=== PATIENT | male | born 1960 | race Caucasian/White ===

== ENCOUNTER 2016-07-01 08:58 | Day surgery (SDC) | payer OTHER ==
[~2016-07-01] VITALS: Ht 180.3 cm; Wt 80.0 kg
[~2016-07-01 08:58] MED LIST: Lactated Ringer's 1,000 ML IV ONE; PANT40TA2 PO; SUCR1TAB30 PO
[2016-07-01] MEDS ORDERED: Propofol 10,000 mCg/mL 20 mL Inj ONE (08:59)
[2016-07-01] MEDS ORDERED: fentaNYL-PF 50 mCg/mL 2 mL Inj ONE (08:59)
[2016-07-01 09:11] VITALS: BP 143/87; PULSE 91; RESP 16; O2SAT 100
[2016-07-01] MEDS ORDERED: MetoCLOpramide 5 mg/mL 2 mL Inj IVPUSH PRN (09:45)
[2016-07-01] MEDS ORDERED: Lactated Ringer's 1,000 ML IV SCH (09:45)
[2016-07-01] MEDS ORDERED: Ondansetron 2 mg/mL 2 mL Inj IVPUSH PRN (09:45)
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
[2016-07-01 09:59] VITALS: BP 121/65; PULSE 79; RESP 14; O2SAT 96
--- NOTE | 2016-07-01 10:00 | PCM.ANEP2 ---
Post Anesthesia Evaluation ASA/CMS Post Anesthesia VS in Patient's Normal Range?: Yes Resp Stable; Airway Patent?: Yes CV Function & Hydration Stable: Yes Mental Status Recovered?: Yes Pain control Satisfactory?: Yes N/V Control Satisfactory?: Yes Juanito Callahan MD Jul 01, 2016 10:00
--- NOTE | 2016-07-01 10:00 | PCM.ANEP1 ---
Post Anesthesia Phase 1 PACU Phase 1 Assessment Date of Service: Jul 01, 2016 (0940) Vital Signs 36.5, 16, 121/65, 96%, 76 Vital Signs Date Time Temp Pulse Resp B/P Pulse Ox O2 Delivery O2 Flow Rate FiO2 07/01/16 09:11 36.7 91 16 143/87 100 Room Air Anesthetic Administered: GA Level of Alertness: Awake, talking ARMSTRONG's with Equal Strength: Yes Pain: No Nausea or Vomiting: No Oxygen Delivery: Room Air Lungs: Clear to Auscultation Dermatome Level: Full Sensation Summary DOING WELL Juanito Callahan MD Jul 01, 2016 10:00
[2016-07-01 10:09] VITALS: BP 125/78; PULSE 86; RESP 14; O2SAT 98
--- NOTE | 2016-07-01 11:17 | ENDO ---
[address] [address] ENDOSCOPY PROCEDURE PATIENT: PRISCILA HASKINS : 1960 MR#: [id number] ADMIT: 07/01/2016 JOB ID: [id number] DATE OF SURGERY: PROCEDURE: Esophagogastroduodenoscopy. INDICATION: Patient with a history of gastric as well as duodenal bulb ulcer. ANESTHESIA: Please see anesthesia report for details regarding ASA classification, Mallampati score and medications. INSTRUMENT USED: GIF H 180 J. PROCEDURE DETAILS: After informed consent was obtained, the patient was brought into the GI suite, where he was placed on oxygen via nasal cannula and monitored with continuous pulse oximeter, telemetry and blood pressure monitoring. A time-out was performed. Then, he was placed in a left lateral decubitus position and medications were administered for sedation. A bite block was placed. The standard EGD scope was then inserted through the bite block and advanced under direct visualization to the second portion of the duodenum without difficulty. FINDINGS: 1. Normal appearing duodenal bulb, first and second portion. 2. Normal appearing pylorus. In the antrum, at approximately the 5 o'clock position, there was an approximately 4-5 mm nodule with superficial ulceration that was friable. Multiple biopsies were obtained. 3. The mucosa appeared erythematous in the antrum and body of the stomach and was quite friable. Multiple biopsies were obtained. 4. Retroflexed views in the gastric body revealed normal appearing cardia and fundus. 5. The GE junction was at approximately 38 cm and appeared regular. 6. Normal appearing esophagus. IMPRESSION: 1. Friable nodule in the antrum. 2. Friable gastric mucosa. RECOMMENDATIONS: 1. Await biopsy results. 2. Continue PPI daily. 3. Follow up in GI clinic in 4-8 weeks. COMPLICATIONS: None estimated. BLOOD LOSS: Less than 5 mL.
--- NOTE | 2016-07-02 15:01 | PATH ---
SURGICAL PATHOLOGY Attending Physician:Freedom Lipscomb CASE STATUS: Signed Out PATIENT NAME: PRISCILA HASKINS PID: [id number] : 1960 DATE COLLECTED:07/01/2016 16:35 SPECIMEN: 1: Stomach, Antrum, Biopsy 2: Gastric, Biopsy CLINICAL HISTORY: 1). ANTRAL NODULE BIOPSY 2). RANDOM GASTRIC BIOPSY FINAL DIAGNOSIS: 1.ANTRAL NODULE BIOPSY: REACTIVE GASTROPATHY, ANTRAL MUCOSA. Negative for intestinal metaplasia. Negative for dysplasia and malignancy. Immunohistochemical stains for Helicobacter organisms are pending and will be reported in an addendum. 2.RANDOM GASTRIC BIOPSY: GASTRIC BODY MUCOSA WITH REACTIVE CHANGES. Negative for intestinal metaplasia. Negative for dysplasia and malignancy. ICD10 CODE K29.70 GROSS DESCRIPTION: The specimen is received in two formalin filled containers labeled with the patient's name. 1). The specimen is sublabeled "antral nodule" and consists of a 0.3 x 0.3 x 0.2 CM portion of tissue which is entirely submitted in cassette 1A. 2). The specimen is sublabeled "random gastric" and consists of 2 portions of tissue which aggregate to 0.4 x 0.3 x 0.2 CM. The specimen is entirely submitted in cassette 2A. 07/01/2016 [facility] MICRO DESCRIPTION: See diagnosis. ICD-9 CODES: CPT CODES: 1: 22456, 68230 2: 26639 PROCEDURE/ADDENDA: Immunohistochemistry SPI Interpretation {Not Entered} Results-Comments This is an addendum issued to report the results of immunohistochemistry. The final diagnosis is unchanged. An immunohistochemical stain was performed on block 1 to evaluate for Helicobacter organisms and is negative. A control stain showed appropriate reactivity. This test was developed and its performance characteristics determined by [employer]. It has not been cleared or approved by the [place]. Food and Drug Administration. The FDA has determined that such clearance or approval is not necessary. This test is used for clinical purposes. It should not be regarded as investigational or for research. Electronically Signed Out Chelo Ornelas MD Electronically Signed Out Clemencia Martinez MD [facility] [address] [place] [address], [place] [address] Technical component performed at [facility], [address], [place], [address]
== END 2016-07-01 23:59 | disposition home or self-care (01) ==
LOC: END 08:58
PROVIDERS: ATTEND Internal Medicine Gastroenterology
DX: K31.9 Disease of stomach and duodenum, unspecified (principal); Z87.11 Personal history of peptic ulcer disease; K21.9 Gastro-esophageal reflux disease without esophagitis; F10.10 Alcohol abuse, uncomplicated; I10 Essential (primary) hypertension; F17.210 Nicotine dependence, cigarettes, uncomplicated; Z87.898 Personal history of other specified conditions
CPT/HCPCS: 43239; J2250; J3010; J7120